=== PATIENT | female | born 1960 | race Two or more races ===

== ENCOUNTER → 2020-03-05 | Outpatient (CLI) | payer OTHER | END | disposition home or self-care (01) | LOC: CT 11:14 | DX: M51.37 Other intervertebral disc degeneration, lumbosacral region (principal); M48.061 Spinal stenosis, lumbar region without neurogenic claudication; M25.78 Osteophyte, vertebrae; M47.817 Spondylosis without myelopathy or radiculopathy, lumbosacral region; M40.46 Postural lordosis, lumbar region; Q76.6 Other congenital malformations of ribs; M46.1 Sacroiliitis, not elsewhere classified; M47.815 Spondylosis without myelopathy or radiculopathy, thoracolumbar region; M51.26 Other intervertebral disc displacement, lumbar region | CPT/HCPCS: 72131 ==